=== PATIENT | female | born 1935 | race American Indian/Alaskan Native ===

== ENCOUNTER 2017-08-10 06:39 | Emergency (ER) | payer MEDICARE ==
[2017-08-10] MEDS ORDERED: Oxymetazoline 0.05% Nasal Spray (30 ml) NS STA (07:23)
[2017-08-10 07:27] VITALS: TEMP 98
--- NOTE | 2017-08-10 07:31 | ED PDOC ---
Arrival/HPI - General Chief Complaint: Abnormal Skin Integrity Time Seen by Provider: 08/10/17 07:15 Historian: Patient - History of Present Illness Narrative History of Present Illness (Text): 08/10/17 07:20 82 year old female, whose PMH includes hypertension, who presents to the emergency department complaining of epistaxis that lasted 20 minutes prior to arrival. Patient reports she was bleeding from her left nostril and notes taking Aspirin daily. She denies any previous nose bleeds, trauma, falls, headache, chest pain, headache, or other complaints. PMD: Dr. Walls Time/Duration: Prior to Arrival Symptom Onset: Sudden Symptom Course: Resolved Activities at Onset: Rest Context: Home Past Medical History - Provider Review Nursing Documentation Reviewed: Yes - Infectious Disease Hx of Infectious Diseases: None - Cardiac Hx Hypertension: Yes - Pulmonary Hx Respiratory Disorders: No - Neurological Hx Neurological Disorder: No - Psychiatric Hx Substance Use: No - Anesthesia Hx Anesthesia: No Family/Social History - Physician Review Nursing Documentation Reviewed: Yes Family/Social History: Unknown Family HX Smoking Status: Never Smoked Hx Alcohol Use: No Hx Substance Use: No Allergies/Home Meds Allergies/Adverse Reactions: Allergies No Known Allergies Allergy (Verified 08/10/17 07:20) Home Medications: Home Meds Medication Instructions Recorded Confirmed Azilsartan Med/Chlorthalidone 1 tab PO DAILY 08/10/17 08/10/17 [Edarbyclor 40-12.5 mg Tablet] Azilsartan Med/Chlorthalidone 08/10/17 [Edarbyclor 40-25 mg Tablet] Metoprolol Tartrate [Lopressor] 1 tab PO BID 08/10/17 08/10/17 Spironolactone [Aldactone] 1 tab PO DAILY 08/10/17 08/10/17 Review of Systems - Physician Review All systems were reviewed & negative as marked: Yes - Review of Systems ENT: Epistaxis Respiratory: absent: SOB Cardiovascular: absent: Chest Pain Physical Exam Vital Signs Reviewed: Yes Vital Signs Temp Pulse Resp BP Pulse Ox 08/10/17 08:56 78 18 169/100 H 98 08/10/17 08:09 81 188/105 H 08/10/17 07:26 98.0 F 86 17 188/110 H 95 Temperature: Afebrile Blood Pressure: Hypertensive Pulse: Regular Respiratory Rate: Normal Appearance: Positive for: Well-Appearing, Non-Toxic, Comfortable Pain Distress: None Mental Status: Positive for: Alert and Oriented X 3 - Systems Exam Head: Present: Atraumatic, Normocephalic Pupils: Present: PERRL Extroacular Muscles: Present: EOMI Conjunctiva: Present: Normal Mouth: Present: Moist Mucous Membranes Nose (External): Present: Atraumatic Nose (Internal): Present: No Active Bleeding, Other (dry blood in left nare). No: Epistaxis Neurological: Present: GCS=15, CN II-XII Intact, Speech Normal Skin: Present: Warm, Dry, Normal Color. No: Rashes Psychiatric: Present: Alert, Oriented x 3, Normal Insight, Normal Concentration Medical Decision Making ED Course and Treatment: 08/10/17 Impression: 82 year old female with dry blood in left nare s/p epistaxis since prior to arrival. 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 no recurring epistaxis. no h/o of heavy bleeding, bleeding <15 min, no h/o of easy brusing. not tachy. pt tonio any compaints. no indication for bloodwork,. acute anemia, coagulapthy less likely. pt given b/p meds in er, other thakkar asymptomatic, neuo intact, no conner. observed for decreasing b/p. pt asking for dc. pt states had b/p meds adjusted several days ago. advised continued outpt f/u - Medication Orders Current Medication Orders: Discontinued Medications Hydralazine HCl (Apresoline) 10 mg PO STAT STA Stop: 08/10/17 07:56 Last Admin: 08/10/17 08:09 Dose: 10 mg [facility] Pulse and Blood Pressure Document 08/10/17 08:09 [facility] (Rec: 08/10/17 08:10 [facility] [id number]) Pulse Pulse Rate (60-90) 81 Blood Pressure Blood Pressure (100/60-150/90) 188/105 Oxymetazoline HCl (Afrin 0.05%) 0 ml NS STAT STA Stop: 08/10/17 07:24 Last Admin: 08/10/17 07:31 Dose: 1 spr - Scribe Statement The provider has reviewed the documentation as recorded by the Judah Ashley Provider Scribe Attestation: All medical record entries made by the Scribe were at my direction and personally dictated by me. I have reviewed the chart and agree that the record accurately reflects my personal performance of the history, physical exam, medical decision making, and the department course for this patient. I have also personally directed, reviewed, and agree with the discharge instructions and disposition. Disposition/Present on Arrival - Present on Arrival Any Indicators Present on Arrival: No History of DVT/PE: No History of Uncontrolled Diabetes: No Urinary Catheter: No History of Decub. Ulcer: No History Surgical Site Infection Following: None - Disposition Have Diagnosis and Disposition been Completed?: Yes Diagnosis: Epistaxis, Hypertension Disposition: HOME/ ROUTINE Disposition Time: 13:49 Condition: STABLE Discharge Instructions (ExitCare): Nosebleeds Additional Instructions: return to er with worsening symptoms or concerns. Referrals: Elian Wilde DO [Staff Provider] - Follow up with primary Forms: [employer] ([place])
[2017-08-10 08:57] VITALS: BP 169/100; PULSE 78; RESP 18; O2SAT 98
== END 2017-08-10 08:59 | disposition home or self-care (01) ==
LOC: ED 06:39
DX: R04.0 Epistaxis (principal); I10 Essential (primary) hypertension